=== PATIENT | female | born 1970 | race African-American/Black ===

== ENCOUNTER 2018-05-27 12:54 | Emergency (ER) | payer MEDICARE, OTHER ==
[2018-05-27] MEDS ORDERED: predniSONE 20 MG TAB ONE (13:32)
--- NOTE | 2018-05-27 13:59 | RAD ---
PA AND LATERAL VIEWS CHEST: Date: 05/27/18 HISTORY: Cough. Asthma. FINDINGS: The heart size is normal. The lungs are expanded without focal areas of consolidation, pneumothorax, or pleural effusions. No acute osseous abnormalities are seen. IMPRESSION: No acute process. POS: [facility]
== END 2018-05-27 14:29 | disposition home or self-care (01) ==
LOC: ERS 12:54
DX: J45.901 Unspecified asthma with (acute) exacerbation (principal); I10 Essential (primary) hypertension; B34.9 Viral infection, unspecified; F41.9 Anxiety disorder, unspecified; F32.9 Major depressive disorder, single episode, unspecified; F17.210 Nicotine dependence, cigarettes, uncomplicated; Z79.899 Other long term (current) drug therapy
CPT/HCPCS: 71046; 87804; 94640; J7506; J7620

== ENCOUNTER 2018-10-06 15:13 | Observation (INO) | payer MEDICARE, MEDICAID ==
[2018-10-06 17:48] LABS: #Basophils 0.1 thou/uL (0.0-0.2); #Eosinphils 0.1 thou/uL (0.0-0.7); #Lymphocytes 2.4 thou/uL (1.20-3.40); #Monocytes 0.5 thou/uL (0.11-0.59); #Neutrophils 3.7 thou/uL (1.40-6.50); %Basophils 1.2 % (0.0-1.0); %Eosinophils 1.9 % (0.0-10.0); %Monocytes 6.9 % (0.0-10.0); Hemoglobin 14.8 g/dL (12.0-16.0); Mean Corpuscular HGB CONC 33.4 g/dL (32.0-36.0); Mean Corpuscular Hemoglobin 30.1 pg (27.0-31.0); Mean Corpuscular Volume 90.1 fL (78.0-98.0); Mean Platelet Volume 8.7 fL (7.4-10.4); Platelet Count 243 thou/uL (130-400); Red Blood Cell (RBC) Count 4.93 mill/uL (4.20-5.40); White Blood Cell (WBC) Count 6.8 thou/uL (4.8-10.8)
--- NOTE | 2018-10-06 17:59 | CT ---
CT Brain WO Con HISTORY: Headache, hypertension COMPARISON: 01/23/2007 FINDINGS: Hemorrhage: None. Ventricular system: Normal in size and morphology for the patient's age. Cerebral parenchyma: Normal Midline shift: None. Mass: No mass effect. Calvarium: Normal. Visualized Paranasal sinuses: There is a mucous retention cyst versus polyp in the right sphenoid sin us. IMPRESSION: No acute intracranial abnormalities.
[2018-10-06] MEDS ORDERED: cloNIDine 0.1 MG TAB ONE (18:10)
[2018-10-06 18:21] LABS: ALT (SGPT) 33 U/L (8-55); AST (SGOT) 25 U/L (5-34); Albumin 4.4 g/dL (3.5-5.0); Alkaline Phosphatase 87 U/L (40-150); Anion Gap 15 mmol/L (10-20); BUN (Urea Nitrogen) 11 mg/dL (7.0-18.7); Bilirubin, Total 0.3 mg/dL (0.2-1.2); Calc. Creatinine Clearance 0 mL/min (70-130); Calcium 9.9 mg/dL (7.8-10.44); Carbon Dioxide 25 mmol/L (22-29); Chloride 104 mmol/L (98-107); Estimated GFR-MDRD 79; Globulin 2.9 g/dL (2.4-3.5); Glucose 95 mg/dL (70-105); Potassium 3.8 mmol/L (3.5-5.1); Protein, Total 7.3 g/dL (6.0-8.3); Sodium 140 mmol/L (136-145)
--- NOTE | 2018-10-06 18:26 | RAD ---
LEFT FOOT THREE VIEWS: 10/06/18 HISTORY: Left foot pain, left great toe pain. FINDINGS/IMPRESSION: No fracture, dislocation or bony destruction is identified. Small posterior plantar calcaneal spur is present. POS: [facility]
[2018-10-06] MEDS ORDERED: Aspirin Chewable 81 MG TAB ONE (18:55)
[2018-10-06] MEDS ORDERED: Senokot S 8.6-50 MG TAB PO PRN (19:00)
[2018-10-06] MEDS ORDERED: cloNIDine 0.1 MG TAB PO PRN (19:03)
[2018-10-06] MEDS ORDERED: Lisinopril 10 MG TAB PO SCH (19:15)
[2018-10-06] MEDS ORDERED: hydrALAZINE 20 MG/ML VIAL ONE (19:24)
[2018-10-06 21:18] LABS: Troponin I 0.052 ng/mL (< 0.028)
[2018-10-06] MEDS: hydrALAZINE 20 MG/ML VIAL SLOW IVP PRN (23:44)
[2018-10-06] MEDS: Acetaminophen 325 MG TAB PO PRN (23:44)
[2018-10-06] MEDS: Famotidine 20 MG TAB PO SCH (23:44)
[2018-10-07 00:32] VITALS: BMI 39.1
[2018-10-07 00:39] LABS: Troponin I 0.056 ng/mL (< 0.028)
--- NOTE | 2018-10-07 01:46 | HP ---
[facility] CHIEF COMPLAINT: Foot pain. HISTORY OF PRESENT ILLNESS: Ms. Macdonald is a 47-year-old female who reported to the emergency room today for evaluation of left foot pain. The patient reports several months ago, doctor cut her ingrown toenail. The pain is most severe in the first toe. The patient's condition is exacerbated by walking. X-ray of the foot was unremarkable; however when she was being evaluated in the emergency room, she was known to be quite hypertensive. Highest blood pressure was 245/129. The patient reports she does take medication for hypertension. It was changed 3 months ago to lisinopril/hydrochlorothiazide and she reports that the last time she checked it was several days ago and she said normal for her is in the 150s. She reports that when she goes to see the doctor at [facility] that she said her blood pressure is in the normal range and she has not been changed recently. The patient denies a headache. Denies any other symptoms. Denies chest pain. The patient's EKG showed no acute changes. First 2 troponins were in the indeterminate range 0.042, 0.052. Based on risk factors, symptoms, blood pressure, patient was admitted for further management. PAST MEDICAL HISTORY: Includes hypertension, asthma. PAST SURGICAL HISTORY: Cholecystectomy, tubal ligation, history of partial hysterectomy. PSYCHIATRIC HISTORY: Includes depression. SOCIAL HISTORY: The patient reports drinking socially. Denies drug use. Does use tobacco, smokes cigarettes, smoked about half a pack a day and has for at least 10 years. ALLERGIES: INCLUDE BENADRYL, CHOCOLATE FLAVOR, EGGS, LACTOSE, MILK. CURRENT MEDICATIONS: Include lisinopril/hydrochlorothiazide 20 mg/12.5. REVIEW OF SYSTEMS: The patient reports left big great toe pain when ambulating. Otherwise, denies chest pain, shortness of breath, nausea. Does report some fatigue today. Reports some mild headache. All other systems are reviewed and are negative unless mentioned in the HPI. PHYSICAL EXAMINATION: VITAL SIGNS: Blood pressure 190/103, pulse is 84, respirations 16, temp is 97.7, pulse ox is 95% on room air. CONSTITUTIONAL: The patient is nontoxic appearing. HEENT: Head is atraumatic and normocephalic. Eyes, pupils are equally round and reactive to light. Extraocular muscles are intact. ENT mucous membranes are moist. Mouth exam is normal. NECK: Normal range of motion. Trachea is midline. RESPIRATORY: Chest breath sounds are clear. Chest movement is symmetrical. CARDIOVASCULAR: Regular heart rate and rhythm. Heart sounds are normal. ABDOMEN: Nontender. Bowel sounds are heard. EXTREMITIES: Upper extremities, normal range of motion. Normal inspection. Radial pulses equal bilaterally. Lower extremities normal range of motion. Motor strength is normal. Sensation is intact. Pedal pulses are equal bilaterally. NEUROLOGIC: The patient is oriented to person, place, and time. Speech is normal. SKIN: Normal color, warm, and dry. PSYCHIATRIC: The patient has a normal affect. IMAGING: EKG shows normal sinus rhythm, beats per minute 87. T-waves are normal, LVH. RADIOLOGY: CT head has no acute changes. ASSESSMENT/PLAN: 1. Hypertensive urgency. We will restart home medications. An extra dose was given tonight. Blood pressure has improved. We will trend p.r.n. medication as needed, may add some amlodipine in the morning. Based on 2 troponins in the indeterminate range, but increasing, we will add a stress test with a nuclear med component. 2. Asthma. The patient appears at baseline. 3. Deep venous thrombosis and gastrointestinal prophylaxis will be started. HOSPITAL COURSE: Will be dependent on clinical findings. Job ID: [id number]
[2018-10-07] MEDS: Acetaminophen 325 MG TAB PO PRN ×2 (04:16→09:04)
[2018-10-07 04:46] LABS: #Basophils 0.1 thou/uL (0.0-0.2); #Eosinphils 0.1 thou/uL (0.0-0.7); #Lymphocytes 2.5 thou/uL (1.20-3.40); #Monocytes 0.5 thou/uL (0.11-0.59); #Neutrophils 3.8 thou/uL (1.40-6.50); %Basophils 0.8 % (0.0-1.0); %Eosinophils 1.8 % (0.0-10.0); %Lymphocytes 36.2 % (21.0-51.0); %Monocytes 7.4 % (0.0-10.0); %Neutrophils 53.9 % (42.0-75.0); Hemoglobin 13.8 g/dL (12.0-16.0); Mean Corpuscular HGB CONC 33.3 g/dL (32.0-36.0); Mean Platelet Volume 8.8 fL (7.4-10.4); Platelet Count 224 thou/uL (130-400); Red Blood Cell (RBC) Count 4.61 mill/uL (4.20-5.40)
[2018-10-07 05:11] LABS: ALT (SGPT) 29 U/L (8-55); AST (SGOT) 23 U/L (5-34); Albumin 3.7 g/dL (3.5-5.0); Alkaline Phosphatase 73 U/L (40-150); Anion Gap 12 mmol/L (10-20); BUN (Urea Nitrogen) 11 mg/dL (7.0-18.7); Bilirubin, Total 0.3 mg/dL (0.2-1.2); Calc. Creatinine Clearance 94 mL/min (70-130); Calcium 9.3 mg/dL (7.8-10.44); Carbon Dioxide 25 mmol/L (22-29); Cardiac Risk 5.9 (Less than 4.5); Chloride 104 mmol/L (98-107); Cholesterol 195 mg/dl (< 200 Desired); Estimated GFR-MDRD 67; Globulin 2.9 g/dL (2.4-3.5); Glucose 172 mg/dL (70-105); HDL Cholesterol 33 mg/dL (>60 Neg Risk); LDL Cholesterol, Calculated 128 mg/dL; Potassium 3.4 mmol/L (3.5-5.1); Protein, Total 6.6 g/dL (6.0-8.3); Sodium 138 mmol/L (136-145); Triglycerides 170 mg/dL (Less than 150)
[2018-10-07] MEDS ORDERED: Amlodipine 10 MG TAB PO SCH (09:00)
[2018-10-07] MEDS: Famotidine 20 MG TAB PO SCH ×2 (09:04→20:56)
[2018-10-07] MEDS: Enoxaparin Sodium 40 MG/0.4 ML SYRINGE SC SCH (09:09)
[2018-10-07] MEDS ORDERED: hydrALAZINE 20 MG/ML VIAL SLOW IVP SCH (10:45)
[2018-10-07] MEDS ORDERED: Lisinopril/Hydrochlorothiazide 20/25 mg Tablet PO SCH (11:00)
[2018-10-07] MEDS: Lisinopril/Hydrochlorothiazide 20/25 mg Tablet PO SCH (11:59)
[2018-10-07] MEDS ORDERED: hydrALAZINE 25 MG TAB PO SCH (15:00)
[2018-10-07] MEDS: cloNIDine 0.1 MG TAB PO SCH ×2 (16:59→20:55)
[2018-10-07] MEDS: hydrALAZINE 20 MG/ML VIAL SLOW IVP PRN (18:26)
--- NOTE | 2018-10-07 18:31 | PDOC.EVN ---
Event Note - Event Note Event Note: Patient's BP remains significantly elevated at greater than 200 systolic upon recheck, it appears that the 135 systolic reading may not have been accurate. Will hold discharge and give IV hydralazine. Will continue to titrate other antihypertensives.
[2018-10-07] MEDS: hydrALAZINE 25 MG TAB PO SCH (20:56)
--- NOTE | 2018-10-08 05:25 | DIS ---
DATE OF ADMISSION: 10/06/2018 DATE OF DISCHARGE: 10/07/2018 ALLERGIES: CHOCOLATE FLAVOR, DIPHENHYDRAMINE, MILK, AND EGGS. CHIEF COMPLAINT: Left great toe pain. FINAL DIAGNOSES: 1. Left toe pain, likely secondary to ingrown toenail. Foot x-ray negative for any pathologic finding of a small posterior plantar calcaneal spur present. 2. Accelerated hypertension with resulting type 2 demand ischemia, resolved. 3. Hypertension. 4. Asthma. PROCEDURE PERFORMED: None. LABORATORY DATA: White blood cell count 7, hemoglobin 13.8, hematocrit 41.5, platelets are 224. Sodium 138, potassium 3.4, BUN 11, creatinine 1.06, GFR 67. Liver function enzymes within normal limits. Troponin 0.04, 0.05, 0.05 respectively. LDL 128, HDL 33, total cholesterol 195, TSH 3.66. IMAGING RESULTS: X-ray of the left foot showed no fracture, dislocation, or bony destruction. Small posterior plantar calcaneus spur present. Brain CT showed no acute intercranial abnormalities. CONSULTATIONS: None. VITAL SIGNS: Blood pressure 135/71, pulse is 84, O2 saturation 99, respirations 16. HOSPITAL COURSE: The patient is a 47-year-old female with past medical history significant for hypertension and asthma, who presented to the hospital for evaluation of pain in her left toe. The pain started several months ago when the doctor cut her ingrown toenail. The patient's condition is exacerbated by walking. X-ray of the foot was unremarkable. However, when she was being evaluated in the emergency room, she was quite hypertensive, blood pressure was 245/129. She reports that it is usually in the 150s when she takes at home. Her medication was changed about 3 months ago to lisinopril/hydrochlorothiazide, which she does take as prescribed. She also had a mild headache. CT of the brain was performed which was negative. She was admitted for monitoring and control of her blood pressure. The patient adamantly denies any chest pain or shortness of breath. She denies any dizziness or palpitations. She has had no cardiac symptoms whatsoever. Amlodipine was added to her lisinopril, hydrochlorothiazide, and hydralazine was added as well, with good response in her blood pressure. It did trend down throughout the day. Regarding her headache, it is improved. She reports that her headache seems to be exacerbated with movement of her neck with some musculoskeletal pain in her neck as well. Once again, she has no cardiac complaints at this time. PHYSICAL EXAMINATION: GENERAL: The patient is an obese female, in no acute distress. She is sitting up in bed, eating dinner. HEENT: Atraumatic and normocephalic. Eye movements intact. NECK: Supple. No lymphadenopathy. No JVD. RESPIRATORY: Regular respiratory rate and pattern. Clear to auscultation bilaterally. No rhonchi or wheezes. CARDIOVASCULAR: S1 and S2. Regular rate and rhythm. No appreciable murmurs, rubs, or gallops. GASTROINTESTINAL: Soft, nontender, normal bowel sounds. PERIPHERAL VASCULAR: No lower extremity pitting edema. +2 DP pulses bilaterally. MUSCULOSKELETAL: No joint effusion or swelling. Nail of left great toe does appear to be ingrown. NEUROLOGIC: Awake and alert. Cranial nerves 2 through 12 intact. No focal deficits. SKIN: Warm and dry. No discoloration. CONDITION AT DISCHARGE: Stable. DISCHARGE MEDICATIONS: She will continue lisinopril and hydrochlorothiazide 20/12.5. New medications will be amlodipine 10 mg daily along with hydralazine 50 mg t.i.d. She will continue her rescue inhaler as well as her Symbicort daily. Regarding her neck discomfort, we will give her a trial of Flexeril 5 mg tablet one tablet p.o. t.i.d. p.r.n. DISCHARGE DISPOSITION: Home. PLAN: The patient will follow up with Podiatry regarding her left toe pain. She will continue to monitor her blood pressure at home and take her new blood pressure pills. I have advised her to follow up with [facility] as well where she gets her regular medical care. The patient discharged home in good condition. Job ID: [id number]
[2018-10-08] MEDS: Amlodipine 10 MG TAB PO SCH (08:17)
[2018-10-08] MEDS: hydrALAZINE 25 MG TAB PO SCH ×3 (08:17→22:02)
[2018-10-08] MEDS: Lisinopril/Hydrochlorothiazide 20/25 mg Tablet PO SCH (08:18)
[2018-10-08] MEDS: Famotidine 20 MG TAB PO SCH ×2 (08:18→22:04)
[2018-10-08] MEDS: HYDROcodone/Acetaminophen 5/325 mg Tablet PO PRN (08:19)
[2018-10-08] MEDS: Enoxaparin Sodium 40 MG/0.4 ML SYRINGE SC SCH (08:21)
[2018-10-08] MEDS: cloNIDine 0.1 MG TAB PO SCH ×3 (08:22→22:03)
[2018-10-08] MEDS: Metoprolol Tartrate 50 MG TAB PO SCH ×2 (10:23→22:04)
[2018-10-08 12:49] LABS: Troponin I 0.121 ng/mL (< 0.028)
--- NOTE | 2018-10-08 13:41 | PDOC.PN ---
- Subjective Encounter Start Date: 10/08/18 Encounter Start Time: 10:00 Subjective: pt up in bed no complains - Objective Resuscitation Status - Order Detail: 10/06/18 19:00 Resuscitation Status Routine Co-Sign Provider: Resuscitation Status: FULL: Full Resuscitation Discussed with: patient Additional comments: Mother is her surrogate decision maker Vital Signs & Weight: Vital Signs (12 hours) Temp Pulse Resp BP BP Pulse Ox 10/08/18 08:22 183/86 H 10/08/18 08:18 69 186/91 H 10/08/18 08:17 69 186/91 H 10/08/18 03:26 99.1 F 75 16 154/69 H 98 Weight Weight 198 lb 4.8 oz I&O: 10/07/18 10/08/18 10/09/18 06:59 06:59 06:59 Intake Total 320 1500 Output Total 350 900 Balance -30 600 Result Diagrams: 10/07/18 04:25 10/07/18 04:25 Phys Exam - Physical Examination Respiratory: no wheezing, no rales, no rhonchi, wheezing present, clear to auscultation bilateral Cardiovascular: RRR, no significant murmur, no rub, gallop, irregular Gastrointestinal: soft, non-tender, no distention, positive bowel sounds Musculoskeletal: no edema, pulses present, edema present Dx/Plan (1) Hypertension Code(s): I10 - ESSENTIAL (PRIMARY) HYPERTENSION Status: Acute (2) Foot pain Code(s): M79.673 - PAIN IN UNSPECIFIED FOOT Status: Acute (3) Obesity Code(s): E66.9 - OBESITY, UNSPECIFIED Status: Acute (4) Sleep apnea Code(s): G47.30 - SLEEP APNEA, UNSPECIFIED Status: Acute - Plan pt has been having headache for 3 weeks, she states that her bp has been -: around 150. will start pt on bb, talked to her about weight -: loss and low salt for her bp control. echo pending. * . Review of Systems - Review of Systems Cardiovascular: negative: chest pain, palpitations, orthopnea, paroxysmal nocturnal dyspnea, edema, light headedness, other Gastrointestinal: negative: Nausea, Vomiting, Abdominal Pain, Diarrhea, Constipation, Melena, Hematochezia, Other - Medications/Allergies Allergies/Adverse Reactions: Allergies Allergy/AdvReac Type Severity Reaction Status Date / Time chocolate flavor Allergy Verified 10/06/18 22:47 diphenhydramine HCl Allergy Verified 10/06/18 22:47 [From Benadryl] milk Allergy Verified 10/06/18 22:47 eggs Allergy Uncoded 10/11/13 13:14 Medications: Current Medications Acetaminophen (Tylenol) 650 mg PO Q4H PRN PRN Reason: Headache/Fever/Mild Pain (1-3) Last Admin: 10/07/18 09:04 Dose: 650 mg Hydrocodone Bitart/Acetaminophen ([place] 5/325) 1 tab PO Q4H PRN PRN Reason: Moderate Pain (4-6) Last Admin: 10/08/18 08:19 Dose: 1 tab Amlodipine Besylate (Norvasc) 10 mg PO DAILY [facility] Last Admin: 10/08/18 08:17 Dose: 10 mg Clonidine (Catapres) 0.1 mg PO Q4H PRN PRN Reason: SBP > 180 Last Admin: 10/07/18 09:08 Dose: 0.1 mg Clonidine (Catapres) 0.1 mg PO TID [facility] Last Admin: 10/08/18 08:22 Dose: 0.1 mg Enoxaparin Sodium (Lovenox) 40 mg SC 0900 [facility] Last Admin: 10/08/18 08:21 Dose: 40 mg Famotidine (Pepcid) 20 mg PO BID [facility] Last Admin: 10/08/18 08:18 Dose: 20 mg Lisinopril/HCTZ (Prinizide 20-25) 1 tab PO DAILY [facility] Last Admin: 10/08/18 08:18 Dose: 1 tab Hydralazine HCl (Apresoline) 10 mg SLOW IVP Q4H PRN PRN Reason: SBP > 180 and HR < 70 Last Admin: 10/07/18 18:26 Dose: 10 mg Hydralazine HCl (Apresoline) 100 mg PO TID [facility] Last Admin: 10/08/18 08:17 Dose: 100 mg Metoprolol Tartrate (Lopressor) 50 mg PO BID [facility] Last Admin: 10/08/18 10:23 Dose: 50 mg Mometasone Furoate/Formoterol Fumar (Dulera 200 Mcg/5 Mcg Inhaler) 2 puff INH BID-RT PRN PRN Reason: SOB &/or Wheezing Senna/Docusate Sodium (Senokot S) 2 tab PO BIDPRN PRN PRN Reason: Constipation Sodium Chloride (Flush - Normal Saline) 10 ml IVF Q12HR PRN PRN Reason: Saline Flush Last Admin: 10/06/18 23:47 Dose: 10 ml
[2018-10-08 15:19] LABS: Troponin I 0.102 ng/mL (< 0.028)
[2018-10-08 18:17] LABS: Troponin I 0.117 ng/mL (< 0.028)
[2018-10-08] MEDS ORDERED: Mometasone/Formoterol 120 PUFF INHALER INH PRN (18:30)
[2018-10-08] MEDS ORDERED: Ondansetron ODT 4 MG TAB PO PRN (23:36)
[2018-10-09] MEDS ORDERED: Fioricet 325/50/40 mg Tablet PO PRN (09:15)
[2018-10-09] MEDS ORDERED: Ketorolac Tromethamine 30 MG/ML VIAL IVP SCH (09:15)
[2018-10-09] MEDS ORDERED: traZODone HCl 50 MG TAB PO PRN (09:16)
[2018-10-09] MEDS ORDERED: Ondansetron PF 4 MG/2 ML Vial IVP SCH (09:30)
[2018-10-09] MEDS: Famotidine 20 MG TAB PO SCH ×2 (09:49→20:46)
[2018-10-09] MEDS: Enoxaparin Sodium 40 MG/0.4 ML SYRINGE SC SCH (09:49)
[2018-10-09 09:59] LABS: CRP (Inflammatory) Less than 0.50 mg/dL (= or < 0.5)
[2018-10-09] MEDS ORDERED: Lisinopril/Hydrochlorothiazide 20/25 mg Tablet PO SCH (10:30)
[2018-10-09] MEDS ORDERED: hydrALAZINE 25 MG TAB PO SCH (11:00)
[2018-10-09] MEDS ORDERED: Metoprolol Tartrate 25 MG TAB PO SCH (11:15)
[2018-10-09] MEDS ORDERED: Amlodipine 10 MG TAB PO SCH (11:15)
--- NOTE | 2018-10-09 11:58 | EKG ---
Test Reason : Blood Pressure : / mmHG Vent. Rate : 087 BPM Atrial Rate : 087 BPM P-R Int : 154 ms QRS Dur : 072 ms QT Int : 398 ms P-R-T Axes : 060 009 083 degrees QTc Int : 478 ms Normal sinus rhythm Possible Left atrial enlargement Left ventricular hypertrophy Nonspecific T wave abnormality Prolonged QT Abnormal ECG Confirmed by BETO SAVAGE M.D. ([id number]), online content editor CACHORRO DUNN ([id number]) on 10/09/2018 11:57:55 AM Referred By: Confirmed By:BETO SAVAGE M.D.
[2018-10-09] MEDS: Amlodipine 10 MG TAB PO SCH ×3 (13:14→16:21)
[2018-10-09] MEDS: Metoprolol Tartrate 50 MG TAB PO SCH (13:15)
[2018-10-09] MEDS: hydrALAZINE 25 MG TAB PO SCH ×3 (16:19→20:45)
[2018-10-09] MEDS ORDERED: Atorvastatin Calcium 20 MG TAB PO SCH (21:00)
[2018-10-09] MEDS ORDERED: cloNIDine 0.1 MG TAB PO SCH (21:00)
[2018-10-09] MEDS: Metoprolol Tartrate 25 MG TAB PO SCH (21:30)
[2018-10-10] MEDS ORDERED: Lisinopril/Hydrochlorothiazide 20/25 mg Tablet PO SCH (09:00)
[2018-10-10] MEDS: Famotidine 20 MG TAB PO SCH (10:15)
[2018-10-10] MEDS: Amlodipine 10 MG TAB PO SCH (10:16)
[2018-10-10] MEDS: Enoxaparin Sodium 40 MG/0.4 ML SYRINGE SC SCH (10:16)
[2018-10-10] MEDS: Metoprolol Tartrate 25 MG TAB PO SCH (10:16)
[2018-10-10] MEDS: hydrALAZINE 25 MG TAB PO SCH (10:17)
[2018-10-10] MEDS: HYDROcodone/Acetaminophen 5/325 mg Tablet PO PRN (11:30)
[2018-10-10 11:40] VITALS: BP 131/78; TEMP 96.9
--- NOTE | 2018-10-11 22:42 | EKG ---
Test Reason : Blood Pressure : / mmHG Vent. Rate : 054 BPM Atrial Rate : 054 BPM P-R Int : 188 ms QRS Dur : 076 ms QT Int : 504 ms P-R-T Axes : 013 014 063 degrees QTc Int : 477 ms Sinus bradycardia Minimal voltage criteria for LVH, may be normal variant Nonspecific T wave abnormality Prolonged QT Abnormal ECG When compared with ECG of 06-OCT-2018 17:42, Vent. rate has decreased BY 33 BPM T wave inversion more evident in Anterolateral leads Confirmed by Tee WOLF ([id number]) on 10/11/2018 10:42:35 PM Referred By: RUBY Confirmed By:Tee WOLF
--- NOTE | 2018-10-12 03:56 | PDOC.PN ---
- Subjective Encounter Start Date: 10/09/18 Encounter Start Time: 10:00 Subjective: pt up in bed complains of pain around her neck area - Objective Resuscitation Status - Order Detail: 10/06/18 19:00 Resuscitation Status Routine Co-Sign Provider: Resuscitation Status: FULL: Full Resuscitation Discussed with: patient Additional comments: Mother is her surrogate decision maker Vital Signs & Weight: Weight Weight 196 lb I&O: 10/10/18 10/11/18 10/12/18 06:59 06:59 06:59 Intake Total 1180 Output Total 400 Balance 780 Result Diagrams: 10/07/18 04:25 10/07/18 04:25 Phys Exam - Physical Examination Neck: no nodes, no JVD, supple, full ROM Respiratory: no wheezing, no rales, no rhonchi, wheezing present, clear to auscultation bilateral Cardiovascular: RRR, no significant murmur, no rub, gallop, irregular Gastrointestinal: soft, non-tender, no distention, positive bowel sounds Musculoskeletal: no edema, pulses present, edema present Dx/Plan (1) Hypertension Code(s): I10 - ESSENTIAL (PRIMARY) HYPERTENSION Status: Acute (2) Foot pain Code(s): M79.673 - PAIN IN UNSPECIFIED FOOT Status: Acute (3) Obesity Code(s): E66.9 - OBESITY, UNSPECIFIED Status: Acute (4) Sleep apnea Code(s): G47.30 - SLEEP APNEA, UNSPECIFIED Status: Acute - Plan pt's bp still not controlled -: will order pain meds for her neck pain -: echo pending * . Review of Systems - Review of Systems Respiratory: negative: Cough, Dry, Shortness of Breath, Hemoptysis, SOB with Excertion, Pleuritic Pain, Sputum, Wheezing Cardiovascular: negative: chest pain, palpitations, orthopnea, paroxysmal nocturnal dyspnea, edema, light headedness, other Gastrointestinal: negative: Nausea, Vomiting, Abdominal Pain, Diarrhea, Constipation, Melena, Hematochezia, Other Genitourinary: negative: Dysuria, Frequency, Incontinence, Hematuria, Retention , Other Musculoskeletal: Neck Pain - Medications/Allergies Allergies/Adverse Reactions: Allergies Allergy/AdvReac Type Severity Reaction Status Date / Time chocolate flavor Allergy Verified 10/06/18 22:47 diphenhydramine HCl Allergy Verified 10/06/18 22:47 [From Momorena] milk Allergy Verified 10/06/18 22:47 eggs Allergy Uncoded 10/11/13 13:14
--- NOTE | 2018-10-12 04:48 | DIS ---
DATE OF ADMISSION: 10/06/2018 DATE OF DISCHARGE: 10/10/2018 DISCHARGE DIAGNOSES: As of the following; 1. Hypertension, uncontrolled. 2. Foot pain. 3. Obesity. 4. Sleep apnea. HOSPITAL COURSE: The patient is a 47-year-old female who initially came in for a left toenail toe pain, was found to be hypertensive, so she was admitted to the hospital for further evaluation. The patient through the hospital stay, her blood pressure medications were titrated. The patient states that she has been compliant with her blood pressure medications at home, however, she has not been compliant with the diet. She was educated on diet and weight loss, which would aid her blood pressure control. She did have some mild elevated troponins, however, she did not have any chest pain or shortness of breath, at this time, we did an echocardiogram which indicated an EF of 60% to 65% with normal right ventricular size, just mild tricuspid and mild mitral regurgitations. The patient continued to improve. Her vitals were stable and she was discharged home to follow up with her primary care doctor. She did also have a CT brain in the ER, which was essentially normal. MEDICATIONS: Her home medications are as of the following; 1. Norvasc 10 mg daily. 2. Atorvastatin 20 mg at bedtime. 3. Lopressor 12.5 b.i.d. 4. Hydralazine 25 b.i.d. 5. Tramadol 50 q.8 p.r.n. 6. Lisinopril and hydrochlorothiazide 20/25 one p.o. daily. 7. Budesonide, Symbicort 2 puffs b.i.d. p.r.n. PHYSICAL EXAMINATION: VITAL SIGNS: 96.9, 52, 18, 100% on room air, 131/78. GENERAL: She is awake, alert, and oriented x3. Does not appear in any distress. CV: S1, S2 present. No murmurs, rubs, or gallops. ABDOMEN: Soft and nontender. Bowel sounds are present x2. EXTREMITIES: No edema pedal pulses are present x2. Job ID: [id number]
== END 2018-10-10 12:30 | disposition home or self-care (01) ==
LOC: ERS 15:13 → INTOOBSV 22:24 → 2NO 22:24
PROVIDERS: ADMIT Internal Medicine; ATTEND Internal Medicine
DX: I16.0 Hypertensive urgency (principal); I10 Essential (primary) hypertension; M79.675 Pain in left toe(s); G47.30 Sleep apnea, unspecified; J45.909 Unspecified asthma, uncomplicated; F32.9 Major depressive disorder, single episode, unspecified; F17.210 Nicotine dependence, cigarettes, uncomplicated; I24.8 Other forms of acute ischemic heart disease; E66.9 Obesity, unspecified; Z68.38 Body mass index [BMI] 38.0-38.9, adult; Z91.11 Patient's noncompliance with dietary regimen; Z88.8 Allergy status to other drugs, medicaments and biological substances; Z91.010 Allergy to peanuts; Z91.011 Allergy to milk products; Z79.899 Other long term (current) drug therapy; Z91.02 Food additives allergy status
CPT/HCPCS: 70450; 73630; 80053; 80061; 82553; 84484 ×5; 84550; 85025; 85652; 86140; 93005 ×2; 93306; 96372 ×4; 96374; 96375; 96376 ×2; 97116 ×2; 97139; 99285; G0378 ×2; 36415; 84443; 93010; J0360; J1650; J1885; J2405; Q0162

== ENCOUNTER 2020-02-01 14:31 | Outpatient (CLI) | payer MEDICARE, MEDICAID ==
--- NOTE | 2020-02-01 14:55 | RAD ---
RADIOGRAPH CERVICAL SPINE 3 VIEWS: DATE: 02/01/2020 HISTORY: 49-year-old female with cervical radiculopathy, left side FINDINGS: Moderate joint space narrowing of left atlantoaxial joint. Straightening of cervical curvature. ACDF hardware at C5-6. Mild disc space narrowing at C4-5, C6-7, and C7-T1. Vertebral body heights are maintained. No major spondylolisthesis. No high-grade facet DJD. IMPRESSION: 1) status post anterior cervical discectomy and fusion at C5-6. 2. Mild degenerative disc changes directly superior and inferior to the fusion. 3) osteoarthrosis of left atlantoaxial joint.
--- NOTE | 2020-02-01 15:33 | MRI ---
MRI Cervical spine without contrast: HISTORY: Cervical radiculopathy. Patient complains of left arm pain with numbness and tingling radiating benea th left breast. History of cervical spine fusion. COMPARISON: 05/17/2013 FINDINGS: The craniocervical junction is unremarkable. No significant cord signal abnormality. Paravertebral soft tissues have a normal appearance and normal signal intensity. Metallic susceptibility artifact is now present at the C5-6 level likely due to anterior cervical fus ion with anterior plate and screws transfixing this level. C1-2:No significant stenosis. C2-3: Mild facet degenerative change are seen on the right resulting in mild left-sided neural forami nal narrowing. No significant disc bulge or disc herniation is present. Central spinal canal and right neural foramen are patent. C3-4: Left central and paracentral disc protrusion is present. This results in narrowing of the left anterior and anterolateral aspect of the ventral subarachnoid space with mass effect on the left anterolateral aspect of the spinal cord. Resultant mild left-sided neural foraminal narrowing is pres ent. The right neural foramen is patent. C4-5: Broad-based disc osteophyte complex with central disc protrusion is now present. This was not p resent on prior exam. This results in narrowing of the central spinal canal with mass effect on the anterior aspect of the spinal cord greater centrally. Right neural foramen is patent with mild left-s ided neural foraminal narrowing. C5-6: Posterior osteophyte formation is present at this level which narrows the ventral subarachnoid space. Right neural foramen is patent with mild left-sided neural foraminal narrowing. C6-7: Mild disc osteophyte complex is present with central disc protrusion. This narrows the ventral subarachnoid space with flattening of the anterior aspect of the spinal cord. Neural foramina are patent. C7-T1: Disc osteophyte complex is present narrowing the ventral subarachnoid space. Neural foramina a re patent. IMPRESSION: Postoperative and degenerative changes of the cervical spine. There has been interval development of prominent central disc protrusion at the C4-5 level which results in mass effect on the anterior aspect of the spinal cord. A disc osteophyte complex with central disc protrusion at the C6-7 is also present resulting in slight flattening of the anterior aspect of the spinal cord. Normal signal intensity is present in the spinal cord at these levels. No high-grade neural foraminal narrowing is present.
== END 2020-02-01 14:32 | disposition home or self-care (01) ==
LOC: TBSIIMAG 14:31
PROVIDERS: ATTEND Neurological Surgery
DX: M50.10 Cervical disc disorder with radiculopathy, unspecified cervical region (principal); M47.22 Other spondylosis with radiculopathy, cervical region; M50.121 Cervical disc disorder at C4-C5 level with radiculopathy; M50.123 Cervical disc disorder at C6-C7 level with radiculopathy; M25.78 Osteophyte, vertebrae; Z98.1 Arthrodesis status
CPT/HCPCS: 72040; 72141

== ENCOUNTER 2020-04-30 12:37 | Outpatient (CLI) | payer MEDICARE, MEDICAID ==
--- NOTE | 2020-04-30 13:31 | MRI ---
Exam: Thoracic spine MRI without contrast HISTORY: Back pain for years with numbness and tingling of the right arm. Intermittent tingling and n umbness in the legs. COMPARISON: None FINDINGS: Appropriate T1 marrow signal intensity of the thoracic vertebra. Thoracic spine vertebral body height is maintained. No fracture. No significant STIR hyperintensity to suggest vertebral body edema or ligamentous injury. There is a osseous hemangioma involving the right aspect of T2. Visualized mediastinum, lung parenchyma, paraspinal muscles and solid organs demonstrate appropriate signal intensity. The thoracic cord has a normal size and signal intensity. No cord expansion. No cord malacia. Conus m edullaris terminates at the mid L1 level. Throughout the thoracic spine, neural foramina are patent T5-T6 through T8-T9: Mild broad-based disc bulges with mild central canal stenosis. T11-T12 broad-based disc bulge with mild central canal stenosis IMPRESSION: 1. No fracture 2. No significant central canal stenosis or significant neural foraminal narrowing. 3. Mild degenerative changes of the thoracic spine as detailed above. 4. No abnormality signal intensity in the thoracic cord.
--- NOTE | 2020-04-30 14:20 | MRI ---
MRI LUMBAR SPINE NONCONTRAST: DATE: 04/30/2020 HISTORY: 49-year-old female with "M 51.15 intervertebral disc disorder" COMPARISON: 08/26/2016 FINDINGS: There are 5 lumbar-type vertebrae. Vertebral body heights are maintained. Alignment is normal. All vi sualized intervertebral discs from T11-12 through L5-S1, have normal signal and maintain their heights. Conus medullaris terminates at L1-2 or upper L2 level. No bone marrow signal abnormality. T11-12: Shallow, small right paracentral disc-osteophyte complex slightly indents right ventral aspec t of thecal sac. No significant central spinal canal stenosis. No neural foraminal stenosis. No interval change. T12-L1:Normal L1-2:Normal L2-3:No central spinal canal stenosis. Slightly prominent posterior epidural fat pad. Mild thecal sac stenosis. Mild bilateral neural foraminal stenosis due to encroachment by bilateral lateral and far lateral broad-based disc protrusions or disc bulges. No interval change. L3-4:No central spinal canal stenosis. Slightly prominent posterior epidural fat pad. Mild thecal sac stenosis. Mild-moderate bilateral neural foraminal stenosis due to encroachment by bilateral lateral and far lateral broad-based disc protrusions or disc bulges. Mild bilateral facet degenerativ e hypertrophy. No interval change. L4-5:No central spinal canal stenosis. Slightly prominent posterior epidural fat pad. Very mild theca l sac stenosis. Mild bilateral neural foraminal stenosis due to encroachment by bilateral lateral and far lateral broad-based disc protrusions or disc bulges. Mild bilateral facet degenerative hypert rophy. No interval change. L5-S1:Mild to moderate right facet DJD. Mild left facet DJD. No central or neural foraminal stenosis. No interval change. No interval change overall. IMPRESSION: 1) very mild lumbar spondylosis. This includes low grade facet osteoarthrosis at lower levels. 2) mild to moderate bilateral neural foraminal stenosis at L3-4. 3) no interval change overall since 08/26/2016. 4) no significant central spinal canal stenosis at any level.
== END 2020-04-30 12:38 | disposition home or self-care (01) ==
LOC: BICMRI 12:37
PROVIDERS: ATTEND Specialist
DX: M47.26 Other spondylosis with radiculopathy, lumbar region (principal); M47.24 Other spondylosis with radiculopathy, thoracic region; M48.061 Spinal stenosis, lumbar region without neurogenic claudication; M48.04 Spinal stenosis, thoracic region
CPT/HCPCS: 72146; 72148

== ENCOUNTER 2020-11-07 11:12 | Emergency (ER) | payer MEDICARE, MEDICAID ==
[2020-11-07] MEDS ORDERED: Acetaminophen 500 MG TAB ONE (13:59)
[2020-11-07] MEDS ORDERED: Ketorolac Tromethamine 30 MG/ML VIAL ONE (13:59)
== END 2020-11-07 15:10 | disposition home or self-care (01) ==
LOC: ERS 11:12
DX: M25.512 Pain in left shoulder (principal); M79.661 Pain in right lower leg; I10 Essential (primary) hypertension; J45.909 Unspecified asthma, uncomplicated; E11.9 Type 2 diabetes mellitus without complications; J44.9 Chronic obstructive pulmonary disease, unspecified; F17.290 Nicotine dependence, other tobacco product, uncomplicated; Z79.84 Long term (current) use of oral hypoglycemic drugs; Z79.82 Long term (current) use of aspirin; Z79.899 Other long term (current) drug therapy; W22.8XXA Striking against or struck by other objects, initial encounter
CPT/HCPCS: 96372; J1885

== ENCOUNTER 2021-04-30 12:16 | Emergency (ER) | payer MEDICARE, MEDICAID | END 2021-04-30 13:34 | disposition home or self-care (01) | LOC: ERS 12:16 | DX: M79.672 Pain in left foot (principal); Z79.899 Other long term (current) drug therapy; Z79.84 Long term (current) use of oral hypoglycemic drugs; Z79.82 Long term (current) use of aspirin; I10 Essential (primary) hypertension; J44.9 Chronic obstructive pulmonary disease, unspecified; E11.9 Type 2 diabetes mellitus without complications; F17.290 Nicotine dependence, other tobacco product, uncomplicated ==

== ENCOUNTER 2021-10-25 09:16 | Emergency (ER) | payer OTHER ==
[2021-10-25] MEDS ORDERED: Acetaminophen 500 MG TAB ONE (09:36)
[2021-10-25] MEDS ORDERED: Ketorolac Tromethamine 30 MG/ML VIAL ONE (09:36)
== END 2021-10-25 09:55 | disposition home or self-care (01) ==
LOC: ERS 09:16
DX: M19.041 Primary osteoarthritis, right hand (principal); M19.042 Primary osteoarthritis, left hand; E11.9 Type 2 diabetes mellitus without complications; J44.9 Chronic obstructive pulmonary disease, unspecified; F17.210 Nicotine dependence, cigarettes, uncomplicated; Z79.899 Other long term (current) drug therapy
CPT/HCPCS: 96372; J1885

== ENCOUNTER 2023-05-04 08:17 | Emergency (ER) | payer BC, MEDICARE, OTHER ==
[2023-05-04 09:40] LABS: #Eosinphils 0.1 thou/uL (0.0-0.7); #Monocytes 0.4 thou/uL (0.11-0.59); #Neutrophils 3.1 thou/uL (1.40-6.50); %Basophils 0.3 % (0.0-1.0); %Eosinophils 1.7 % (0.0-10.0); %Lymphocytes 43.4 % (21.0-51.0); %Monocytes 6.6 % (0.0-10.0); %Neutrophils 47.7 % (42.0-75.0); Hematocrit 38.7 % (36.0-47.0); Hemoglobin 12.5 g/dL (12.0-16.0); Mean Corpuscular HGB CONC 32.3 g/dL (32.0-36.0); Mean Corpuscular Hemoglobin 28.2 pg (27.0-31.0); Mean Corpuscular Volume 87.2 fl (78.0-98.0); Mean Platelet Volume 10.3 fL (7.4-10.4); Platelet Count 244 10x3/uL (130-400); RBC Distribution Width 13.3 % (11.5-14.5); Red Blood Cell (RBC) Count 4.44 mill/uL (4.20-5.40); White Blood Cell (WBC) Count 6.6 10x3/uL (4.8-10.8)
[2023-05-04 10:04] LABS: ALT (SGPT) 32 U/L (8-55); AST (SGOT) 21 U/L (5-34); Albumin 4.6 g/dL (3.5-5.0); Alkaline Phosphatase 81 U/L (40-110); Anion Gap 12 mmol/L (10-20); BUN (Urea Nitrogen) 12 mg/dL (9.8-20.1); Bilirubin, Total 0.2 mg/dL (0.2-1.2); Calc. Creatinine Clearance 0 mL/min (70-130); Carbon Dioxide 29 mmol/L (22-29); Chloride 103 mmol/L (98-107); Estimated GFR 97; Globulin 2.5 g/dL (2.4-3.5); Glucose 111 mg/dL (70-105); Potassium 3.8 mmol/L (3.5-5.1); Protein, Total 7.1 g/dL (6.0-8.3); Sodium 140 mmol/L (136-145)
== END 2023-05-04 10:47 | disposition home or self-care (01) ==
LOC: ERS 08:17
DX: R42 Dizziness and giddiness (principal); E11.9 Type 2 diabetes mellitus without complications; J44.9 Chronic obstructive pulmonary disease, unspecified; F17.210 Nicotine dependence, cigarettes, uncomplicated; J45.909 Unspecified asthma, uncomplicated; F17.290 Nicotine dependence, other tobacco product, uncomplicated; Z79.84 Long term (current) use of oral hypoglycemic drugs; Z79.51 Long term (current) use of inhaled steroids; Z79.899 Other long term (current) drug therapy
CPT/HCPCS: 36415; 36416; 71045; 80053; 85025; 93005

== ENCOUNTER 2023-05-15 20:52 | Emergency (ER) | payer BC ==
[2023-05-15 21:36] LABS: #Eosinphils 0.1 thou/uL (0.0-0.7); #Monocytes 0.4 thou/uL (0.11-0.59); #Neutrophils 3.7 thou/uL (1.40-6.50); %Basophils 0.4 % (0.0-1.0); %Eosinophils 0.9 % (0.0-10.0); %Lymphocytes 45.7 % (21.0-51.0); %Neutrophils 47.6 % (42.0-75.0); Hematocrit 38.9 % (36.0-47.0); Hemoglobin 12.8 g/dL (12.0-16.0); Mean Corpuscular HGB CONC 32.9 g/dL (32.0-36.0); Mean Corpuscular Hemoglobin 28.6 pg (27.0-31.0); Mean Platelet Volume 10.3 fL (7.4-10.4); Platelet Count 276 10x3/uL (130-400); RBC Distribution Width 13.4 % (11.5-14.5); Red Blood Cell (RBC) Count 4.47 mill/uL (4.20-5.40); White Blood Cell (WBC) Count 7.7 10x3/uL (4.8-10.8)
[2023-05-15 21:58] LABS: ALT (SGPT) 28 U/L (8-55); AST (SGOT) 19 U/L (5-34); Albumin 4.2 g/dL (3.5-5.0); Alkaline Phosphatase 86 U/L (40-110); Anion Gap 17 mmol/L (10-20); BUN (Urea Nitrogen) 12 mg/dL (9.8-20.1); Bilirubin, Total 0.2 mg/dL (0.2-1.2); Calc. Creatinine Clearance 0 mL/min (70-130); Calcium 9.2 mg/dL (7.8-10.44); Carbon Dioxide 24 mmol/L (22-29); Chloride 103 mmol/L (98-107); Estimated GFR 91; Globulin 2.9 g/dL (2.4-3.5); Glucose 111 mg/dL (70-105); Potassium 4.1 mmol/L (3.5-5.1); Protein, Total 7.1 g/dL (6.0-8.3); Sodium 140 mmol/L (136-145)
[2023-05-15 22:02] LABS: Troponin I Less than 0.010 ng/mL (< 0.028)
== END 2023-05-15 22:34 | disposition home or self-care (01) ==
LOC: ERS 20:52
DX: R07.2 Precordial pain (principal); E11.9 Type 2 diabetes mellitus without complications; I10 Essential (primary) hypertension; J44.9 Chronic obstructive pulmonary disease, unspecified; F17.210 Nicotine dependence, cigarettes, uncomplicated
CPT/HCPCS: 36415; 71045; 80053; 84484; 85025; 93005

== ENCOUNTER 2023-05-28 10:03 | Emergency (ER) | payer BC ==
[2023-05-28] MEDS ORDERED: predniSONE 20 MG TAB ONE (10:29)
[2023-05-28 11:17] LABS: SARS-CoV-2 NAA Rapid Test Not Detected (NotDetected)
== END 2023-05-28 12:03 | disposition home or self-care (01) ==
LOC: ERS 10:03
DX: J06.9 Acute upper respiratory infection, unspecified (principal); E11.9 Type 2 diabetes mellitus without complications; I10 Essential (primary) hypertension; J44.9 Chronic obstructive pulmonary disease, unspecified; F17.210 Nicotine dependence, cigarettes, uncomplicated; Z20.822 Contact with and (suspected) exposure to COVID-19; Z79.899 Other long term (current) drug therapy; Z79.84 Long term (current) use of oral hypoglycemic drugs
CPT/HCPCS: 87081; 87430; 99283; J7512

== ENCOUNTER 2024-01-03 15:33 | Emergency (ER) | payer BC, OTHER ==
[~2024-01-03 15:33] MED LIST: Iopamidol-370 76% 500 ML MDV (1 ML CHARGE) ONE
[2024-01-03 15:56] LABS: #Basophils 0.03 10x3/uL (0.0-0.2); %Basophils 0.4 % (0.0-1.0); %Lymphocytes 48.7 % (21.0-51.0); %Monocytes 6.7 % (0.0-10.0); %Neutrophils 41.7 % (42.0-75.0); Hematocrit 38.3 % (36.0-47.0); Hemoglobin 12.3 g/dL (12.0-16.0); Mean Corpuscular HGB CONC 32.1 g/dL (32.0-36.0); Mean Corpuscular Hemoglobin 28.7 pg (27.0-31.0); Mean Corpuscular Volume 89.5 fL (78.0-98.0); Platelet Count 266 10x3/uL (130-400); RBC Distribution Width 13.2 % (11.5-14.5); Red Blood Cell (RBC) Count 4.28 mill/uL (4.20-5.40)
[2024-01-03 16:11] LABS: ALT (SGPT) 79 U/L (8-55); AST (SGOT) 61 U/L (5-34); Albumin 4.1 g/dL (3.5-5.0); Alkaline Phosphatase 99 U/L (40-110); Anion Gap 18 mmol/L (10-20); BUN (Urea Nitrogen) 11 mg/dL (9.8-20.1); Bilirubin, Total 0.2 mg/dL (0.2-1.2); Calc. Creatinine Clearance 0 mL/min (70-130); Calcium 9.8 mg/dL (7.8-10.44); Carbon Dioxide 18 mmol/L (22-29); Chloride 106 mmol/L (98-107); Estimated GFR 91; Globulin 3.2 g/dL (2.4-3.5); Glucose 110 mg/dL (70-105); Lipase 62 U/L (8-78); Protein, Total 7.3 g/dL (6.0-8.3); Sodium 138 mmol/L (136-145)
[2024-01-03 16:14] LABS: Troponin I 0.023 ng/mL (< 0.028)
[2024-01-03] MEDS ORDERED: fentaNYL 50 mcg/mL 1 mL Vial ONE (17:08)
[2024-01-03] MEDS ORDERED: CEFAZOLIN 2 GM VIAL ONE (17:08)
[2024-01-03] MEDS ORDERED: Lidocaine 1% w/Epinephrine 1:100K 20 ML VIAL ONE ×2 (17:08→17:09)
[2024-01-03] MEDS ORDERED: Sodium Chloride 0.9% 100 ML ONE (17:08)
[2024-01-03] MEDS ORDERED: Boostrix 0.5 ML (Tdap) VIAL (>/=7 yrs of age) ONE (17:08)
[2024-01-03] MEDS ORDERED: Ondansetron PF 4 MG/2 ML Vial IVP PRN (18:16)
[2024-01-03] MEDS ORDERED: Morphine 2 MG/ML VIAL SLOW IVP PRN (18:16)
[2024-01-03] MEDS ORDERED: Labetalol HCl 100 MG/20 ML VIAL SLOW IVP PRN (18:27)
[2024-01-03] MEDS ORDERED: hydrALAZINE 20 MG/ML VIAL SLOW IVP PRN (18:27)
[2024-01-03] MEDS ORDERED: Mometasone 200 MCG/Formoterol 5 MCG 120 PUFF INHALER INH PRN (18:29)
[2024-01-03] MEDS ORDERED: Sodium Chloride 0.9% 1,000 ML IV SCH (18:30)
[2024-01-03] MEDS ORDERED: Ipratropium/Albuterol 3 ML NEB NEB SCH (18:30)
[2024-01-03] MEDS ORDERED: Glucagon 1 MG/ML KIT IM PRN (18:52)
[2024-01-03] MEDS ORDERED: Insulin Lispro 100 UNIT/ML 10 ML VIAL SC PRN (18:52)
[2024-01-03] MEDS ORDERED: Dextrose 50% Abboject 50 ML SYRINGE SLOW IVP PRN (18:52)
[2024-01-03] MEDS ORDERED: Dextrose 5% in Water 1,000 ML IV PRN (18:52)
[2024-01-03] MEDS ORDERED: Amlodipine 10 MG TAB PO SCH (20:00)
[2024-01-03] MEDS ORDERED: Atorvastatin Calcium 20 MG TAB PO SCH (21:00)
[2024-01-03] MEDS ORDERED: Famotidine/PF 20 mg/2ml Vial SLOW IVP SCH (21:00)
[2024-01-03] MEDS ORDERED: hydrALAZINE 25 MG TAB PO SCH (21:00)
[2024-01-03] MEDS ORDERED: Metoprolol Tartrate 25 MG TAB PO SCH (21:00)
[2024-01-03] MEDS ORDERED: Acetaminophen 325 MG TAB PO SCH (23:59)
[2024-01-04] MEDS ORDERED: Amlodipine 10 MG TAB PO SCH (09:00)
== END 2024-01-03 19:02 | disposition home or self-care (01) ==
LOC: ERS 15:33
DX: S01.81XA Laceration without foreign body of other part of head, initial encounter (principal); E11.9 Type 2 diabetes mellitus without complications; I10 Essential (primary) hypertension; J44.9 Chronic obstructive pulmonary disease, unspecified; F17.290 Nicotine dependence, other tobacco product, uncomplicated; V89.2XXA Person injured in unspecified motor-vehicle accident, traffic, initial encounter; Y92.410 Unspecified street and highway as the place of occurrence of the external cause; Z79.84 Long term (current) use of oral hypoglycemic drugs; Z79.899 Other long term (current) drug therapy
CPT/HCPCS: 12013; 36415; 70450; 70498; 71045; 71260; 72125; 74177; 80053; 80307; 83690; 84484; 85025; 90471; 90715; 93005; 96374; 96375; J3010; J3490; Q9967

== ENCOUNTER 2024-01-11 10:34 | Emergency (ER) | payer BC, OTHER | END 2024-01-11 11:20 | disposition home or self-care (01) | LOC: ERS 10:34 | DX: S01.81XD Laceration without foreign body of other part of head, subsequent encounter (principal); E11.9 Type 2 diabetes mellitus without complications; I10 Essential (primary) hypertension; V89.2XXD Person injured in unspecified motor-vehicle accident, traffic, subsequent encounter ==